=== PATIENT | female | born 1980 | race Caucasian/White ===

== ENCOUNTER 2019-07-14 15:06 | Emergency (ER) | payer MEDICARE, MEDICAID ==
[~2019-07-14] VITALS: Ht 167.6 cm; Wt 86.8 kg
[2019-07-14 15:14] VITALS: BP 131/89
[2019-07-14 15:52] LABS: BASOPHILS % (AUTO) 0.6 % (0-1); EOSINOPHILS # (AUTO) 0.1 X10'3 (0-0.9); EOSINOPHILS % (AUTO) 1.9 % (0-6); HEMATOCRIT 38.9 % (35.0-45.0); LYMPHOCYTES # (AUTO) 3.3 X10'3 (1.1-4.8); LYMPHOCYTES % (AUTO) 43.3 % (21-51); MEAN CORPUSCULAR HEMOGLOBIN 29.8 PG (27.0-31.0); MEAN CORPUSCULAR HGB CONC 33.4 g/dL (33.0-36.5); MEAN CORPUSCULAR VOLUME 89.2 FL (78-98); MEAN PLATELET VOLUME 7.9 FL (7.4-10.4); MONOCYTES # (AUTO) 0.5 X10'3 (0-0.9); MONOCYTES % (AUTO) 6.9 % (2-12); NEUTROPHILS # (AUTO) 3.6 X10'3 (1.8-7.7); NEUTROPHILS % (AUTO) 47.3 % (42-75); PLATELET COUNT 288 X10'3 (140-440); RED BLOOD COUNT 4.36 X10'6 (4.20-5.60); RED CELL DISTRIBUTION WIDTH 13.2 % (11.5-14.5); WHITE BLOOD COUNT 7.6 X10'3 (4.5-11.0)
[2019-07-14 15:54] LABS: ALANINE AMINOTRANSFERASE 31 U/L (12-78); ALBUMIN 3.6 G/DL (3.4-5.0); ALKALINE PHOSPHATASE 69 IU/L (46-116); ANION GAP 9 (8-16); ASPARTATE AMINO TRANSFERASE 23 U/L (10-37); BILIRUBIN,TOTAL 0.2 MG/DL (0.1-1.0); BLOOD UREA NITROGEN 12 MG/DL (7-18); BUN/CREATININE RATIO 13.5 (6.6-38.0); CALCIUM 9.1 MG/DL (8.5-10.1); CHLORIDE 106 MMOL/L (99-107); CREATININE 0.89 MG/DL (0.40-0.90); GLUCOSE 110 MG/DL (70-104); POTASSIUM 4.1 MMOL/L (3.5-5.1); SODIUM 141 MMOL/L (135-145); TOTAL CARBON DIOXIDE 26.3 MMOL/L (24-32); TOTAL PROTEIN 7.2 G/DL (6.4-8.2); eGFR 70 ML/MIN
[2019-07-14 16:04] LABS: PARTIAL THROMBOPLASTIN TIME 26 SECONDS (22-32)
--- NOTE | 2019-07-14 17:19 | NUR ---
Attempted to call patient but we have no phone number listed.
== END 2019-07-14 17:20 | disposition left against medical advice (07) ==
LOC: ER 15:07
DX: M79.601 Pain in right arm (principal); R53.83 Other fatigue; Z53.21 Procedure and treatment not carried out due to patient leaving prior to being seen by health care provider
CPT/HCPCS: 36415; 71045; 80053; 84484; 85025; 85610; 85730; 93005

== ENCOUNTER 2020-01-11 07:49 | Emergency (ER) | payer MEDICAID, MEDICARE ==
[~2020-01-11] VITALS: Ht 167.6 cm; Wt 87.4 kg
[2020-01-11 07:53] VITALS: BP 136/87
--- NOTE | 2020-01-11 08:14 | NUR ---
LEFT LEG PAIN X 5 DAYS. PAIN STARTS IN LEFT ESPINOZA AND RADIATES UP INNER LEFT LEG.
== END 2020-01-11 08:56 | disposition home or self-care (01) ==
LOC: ER 07:50
DX: M79.605 Pain in left leg (principal); Z79.899 Other long term (current) drug therapy
CPT/HCPCS: 99281; 99282

== ENCOUNTER 2022-09-01 13:59 | Emergency (ER) | payer MEDICAID ==
[~2022-09-01] VITALS: Ht 167.6 cm; Wt 109.1 kg
--- NOTE | 2022-09-01 14:10 | NUR ---
PT TRIAGE REPORT GIVEN TO DR. BUCIO DUE TO CONCERN FOR LEFT ARM PROTECTION MGR WEAKNESS WITH NUMBNESS/TINGLING, HE STATES NO STROKE ALERT AT THIS TIME.
--- NOTE | 2022-09-01 15:43 | NUR ---
MRI FORM FILLED OUT AND FAXED
[2022-09-01 17:30] VITALS: BP 104/72
== END 2022-09-01 19:09 | disposition home or self-care (01) ==
LOC: ER 13:59
DX: R20.2 Paresthesia of skin (principal); F17.200 Nicotine dependence, unspecified, uncomplicated
CPT/HCPCS: 70450; 72141; 99284

== ENCOUNTER 2023-09-24 17:35 | Emergency (ER) | payer BC ==
[~2023-09-24] VITALS: Ht 170.2 cm; Wt 80.0 kg
[2023-09-24 17:37] VITALS: BP 118/50; PULSE 85; O2SAT 99
[2023-09-24 18:35] VITALS: RESP 16; TEMP 98.4
== END 2023-09-24 18:15 | disposition home or self-care (01) ==
LOC: ER 17:36
DX: I80.8 Phlebitis and thrombophlebitis of other sites (principal)
CPT/HCPCS: 99281